=== PATIENT | male | born 1940 | race Caucasian/White ===

== ENCOUNTER 2023-02-18 21:05 | Emergency (ER) | payer MEDICARE, BC ==
[2023-02-18] MEDS ORDERED: Sodium Chloride 0.9% 10 ML Syringe FLUSH PRN (21:25)
[2023-02-18] MEDS ORDERED: Dextrose 5%-0.45% NaCl 1,000 ML IV SCH (21:45)
[2023-02-18] MEDS ORDERED: cefTRIAXone 2 GM in Sodium Chloride 0.9% 50 ML IV ONE (21:45)
[2023-02-18 21:52] LABS: BASOPHILS PERCENT AUTO 0.1 % (0.1-1.3); HEMATOCRIT 37.6 % (38.4-49.7); HEMOGLOBIN 13.3 g/dL (12.9-16.9); IMMATURE GRAN ABSOLUTE AUTO 0.04 K/uL (0.00-0.23); IMMATURE GRAN PERCENT AUTO 0.3 % (0.0-0.7); LYMPHOCYTES ABSOLUTE AUTO 0.53 K/uL (0.8-3.3); LYMPHOCYTES PERCENT AUTO 4.2 % (11.4-47.7); MEAN CORPUSCULAR HEMOGLOBIN 31.2 pg (31.6-35.5); MEAN CORPUSCULAR HGB CONC 35.4 g/dL (31.6-35.5); MEAN CORPUSCULAR VOLUME 88.3 fL (81.4-99.0); MONOCYTES ABSOLUTE AUTO 1.13 K/uL (0.20-0.90); MONOCYTES PERCENT AUTO 8.9 % (3.3-12.6); NEUTROPHILS ABSOLUTE AUTO 11.03 K/uL (1.0-7.6); NEUTROPHILS PERCENT AUTO 86.5 % (40.0-78.1); PLATELET COUNT,PLT 270 K/uL (130-375); RED BLOOD CELL COUNT 4.26 M/uL (4.14-5.76); WHITE BLOOD CELL COUNT,WBC 12.7 K/uL (3.2-11.0)
[2023-02-18 21:53] LABS: BASOPHILS ABSOLUTE AUTO 0.01 K/uL (0.00-0.10)
[2023-02-18 22:12] LABS: A/G RATIO 0.7 (1.2-2.2); ALANINE AMINOTRANSFERASE,ALT 24 U/L (12-78); ALBUMIN 2.8 g/dL (3.4-5.0); ALKALINE PHOSPHATASE 75 U/L (46-116); ASPARTATE AMNIOTRANSFERASE,AST 22 U/L (15-37); BILIRUBIN TOTAL 0.8 mg/dL (0.2-1.0); CARBON DIOXIDE,CO2 21 mmol/L (21-32); CHLORIDE,CL 97 mmol/L (100-108); ESTIMATED GFR 10 mL/min (>60); GLUCOSE RANDOM 118 mg/dL (74-106); POTASSIUM,K 5.1 mmol/L (3.6-5.2); PROTEIN TOTAL,TP 7.1 g/dL (6.4-8.2); SODIUM,NA 130 mmol/L (140-148)
[2023-02-18 22:13] LABS: ANION GAP 17.1 mmol/L (5.0-14.0)
[2023-02-18 22:15] LABS: BLOOD UREA NITROGEN,BUN 99 mg/dL (7-18); CREATININE 5.4 mg/dL (0.8-1.3)
[2023-02-18 22:17] LABS: LACTIC ACID 1.1 mmol/L (0.4-2.0)
== END 2023-02-18 22:40 ==
LOC: JP.ED 21:05
DX: A41.9 Sepsis, unspecified organism (principal); R65.20 Severe sepsis without septic shock; N17.9 Acute kidney failure, unspecified; N13.8 Other obstructive and reflux uropathy; N40.0 Benign prostatic hyperplasia without lower urinary tract symptoms; E87.5 Hyperkalemia; E87.1 Hypo-osmolality and hyponatremia; Z20.822 Contact with and (suspected) exposure to COVID-19
CPT/HCPCS: 36415; 80053; 83605; 84145; 85025; 87040; 93005; 96365; 99291; J0696; J1815; J3490; J7042; U0002

== ENCOUNTER 2023-03-28 15:41 | Emergency (ER) | payer MEDICARE, BC ==
[2023-03-28 16:48] LABS: BASOPHILS ABSOLUTE AUTO 0.03 K/uL (0.00-0.10); BASOPHILS PERCENT AUTO 0.5 % (0.1-1.3); EOSINOPHILS ABSOLUTE AUTO 0.14 K/uL (0.00-0.40); EOSINOPHILS PERCENT AUTO 2.5 % (0.0-5.4); HEMATOCRIT 37.4 % (38.4-49.7); HEMOGLOBIN 12.4 g/dL (12.9-16.9); IMMATURE GRAN ABSOLUTE AUTO 0.03 K/uL (0.00-0.23); IMMATURE GRAN PERCENT AUTO 0.5 % (0.0-0.7); LYMPHOCYTES ABSOLUTE AUTO 0.88 K/uL (0.8-3.3); MEAN CORPUSCULAR HEMOGLOBIN 31.4 pg (31.6-35.5); MEAN CORPUSCULAR HGB CONC 33.2 g/dL (31.6-35.5); MEAN CORPUSCULAR VOLUME 94.7 fL (81.4-99.0); MONOCYTES ABSOLUTE AUTO 0.49 K/uL (0.20-0.90); MONOCYTES PERCENT AUTO 8.9 % (3.3-12.6); NEUTROPHILS ABSOLUTE AUTO 3.94 K/uL (1.0-7.6); NEUTROPHILS PERCENT AUTO 71.6 % (40.0-78.1); PLATELET COUNT,PLT 208 K/uL (130-375); RED BLOOD CELL COUNT 3.95 M/uL (4.14-5.76); WHITE BLOOD CELL COUNT,WBC 5.5 K/uL (3.2-11.0)
[2023-03-28 17:04] LABS: ANION GAP 10.3 mmol/L (5.0-14.0); CALCIUM 8.4 mg/dL (8.5-10.1); CREATININE 0.9 mg/dL (0.8-1.3); EST CRCL DRUG DOSING (CG) 60.76 mL/min; POTASSIUM,K 4.3 mmol/L (3.6-5.2)
[2023-03-28] MEDS ORDERED: Bacitracin Oint 1 GM U/D Packet TOP ONE (18:13)
[2023-03-28 18:31] LABS: APPEARANCE,URINE CLOUDY (CLEAR); BILIRUBIN,URINE NEGATIVE (NEGATIVE); COLOR,URINE YELLOW (YELLOW); GLUCOSE,URINE NEGATIVE (NEGATIVE); KETONES,URINE NEGATIVE (NEGATIVE); LEUKOCYTE ESTERASE,URINE SMALL (NEGATIVE); NITRITE,URINE NEGATIVE (NEGATIVE); OCCULT BLOOD,URINE MODERATE (NEGATIVE); PH,URINE 6.5 (5.0-8.0); PROTEIN,URINE TRACE mg/dL (NEGATIVE); UROBILINOGEN,URINE 0.2 EU/dL (0.2-1.0)
[2023-03-28 18:36] LABS: AMORPHOUS SEDIMENT,URINE NUMEROUS; BACTERIA,URINE MODERATE; EPITHELIAL CELLS,URINE RARE; MUCUS,URINE NOT SEEN; WBC,URINE NOT SEEN (0-5)
== END 2023-03-28 19:26 | disposition home or self-care (01) ==
LOC: JP.ED 15:41
DX: S00.03XA Contusion of scalp, initial encounter (principal); I48.91 Unspecified atrial fibrillation; R00.1 Bradycardia, unspecified; N40.0 Benign prostatic hyperplasia without lower urinary tract symptoms; Z79.899 Other long term (current) drug therapy; Z87.891 Personal history of nicotine dependence; W18.30XA Fall on same level, unspecified, initial encounter
CPT/HCPCS: 36415; 70450; 70450-26; 80048; 81001; 85025; 93005; 99284

== ENCOUNTER 2024-11-17 23:48 | Emergency (ER) | payer MEDICARE, BC ==
[2024-11-18 00:22] LABS: BASOPHILS ABSOLUTE AUTO 0.04 K/uL (0.00-0.10); BASOPHILS PERCENT AUTO 0.4 % (0.1-1.3); EOSINOPHILS ABSOLUTE AUTO 0.17 K/uL (0.00-0.40); EOSINOPHILS PERCENT AUTO 1.8 % (0.0-5.4); HEMATOCRIT 43.6 % (38.4-49.7); HEMOGLOBIN 15.3 g/dL (12.9-16.9); IMMATURE GRAN ABSOLUTE AUTO 0.21 K/uL (0.00-0.23); IMMATURE GRAN PERCENT AUTO 2.2 % (0.0-0.7); LYMPHOCYTES PERCENT AUTO 4.1 % (11.4-47.7); MEAN CORPUSCULAR HEMOGLOBIN 32.5 pg (31.6-35.5); MEAN CORPUSCULAR HGB CONC 35.1 g/dL (31.6-35.5); MEAN CORPUSCULAR VOLUME 92.6 fL (81.4-99.0); MONOCYTES PERCENT AUTO 8.2 % (3.3-12.6); NEUTROPHILS ABSOLUTE AUTO 8.08 K/uL (1.0-7.6); NEUTROPHILS PERCENT AUTO 83.3 % (40.0-78.1); PLATELET COUNT,PLT 147 K/uL (130-375); RED BLOOD CELL COUNT 4.71 M/uL (4.14-5.76); WHITE BLOOD CELL COUNT,WBC 9.7 K/uL (3.2-11.0)
[2024-11-18 00:27] LABS: APPEARANCE,URINE CLEAR (CLEAR); BILIRUBIN,URINE NEGATIVE (NEGATIVE); COLOR,URINE YELLOW (YELLOW); GLUCOSE,URINE NEGATIVE (NEGATIVE); KETONES,URINE TRACE mg/dL (NEGATIVE); LEUKOCYTE ESTERASE,URINE NEGATIVE (NEGATIVE); NITRITE,URINE NEGATIVE (NEGATIVE); OCCULT BLOOD,URINE NEGATIVE (NEGATIVE); PH,URINE 6.5 (5.0-8.0); PROTEIN,URINE TRACE mg/dL (NEGATIVE)
[2024-11-18 00:35] LABS: AMORPHOUS SEDIMENT,URINE NOT SEEN; BACTERIA,URINE RARE; EPITHELIAL CELLS,URINE RARE; MUCUS,URINE RARE; WBC,URINE 0-5 (0-5)
[2024-11-18 00:40] LABS: A/G RATIO 1.1 (1.2-2.2); ALANINE AMINOTRANSFERASE,ALT 24 U/L (12-78); ALBUMIN 3.7 g/dL (3.4-5.0); ALKALINE PHOSPHATASE 64 U/L (46-116); ASPARTATE AMNIOTRANSFERASE,AST 21 U/L (15-37); BLOOD UREA NITROGEN,BUN 22 mg/dL (7-18); C-REACTIVE PROTEIN 5.78 mg/dL (<0.50); CALCIUM 8.7 mg/dL (8.5-10.1); CARBON DIOXIDE,CO2 27 mmol/L (21-32); CHLORIDE,CL 99 mmol/L (100-108); CREATININE 1.2 mg/dL (0.8-1.3); EST CRCL DRUG DOSING (CG) 45.01 mL/min; ESTIMATED GFR 59 mL/min (>60); GLUCOSE RANDOM 103 mg/dL (74-106); POTASSIUM,K 4.3 mmol/L (3.6-5.2); PROTEIN TOTAL,TP 7.1 g/dL (6.4-8.2); SODIUM,NA 136 mmol/L (140-148)
[2024-11-18 00:41] LABS: ANION GAP 14.3 mmol/L (5.0-14.0)
[2024-11-18 00:45] LABS: LACTIC ACID 1.2 mmol/L (0.4-2.0)
[2024-11-18] MEDS: Acetaminophen 500 MG Tab PO ONE (01:46)
[2024-11-18] MEDS: Iopamidol 612 MG/ML 100 ML Bottle IV SCH (02:18)
[2024-11-18] MEDS: Sodium Chloride 0.9% 10 ML Syringe FLUSH PRN (02:18)
[2024-11-18] MEDS: Sodium Chloride 0.9% 100 ML IV SCH (02:18)
== END 2024-11-18 04:30 | disposition home or self-care (01) ==
LOC: JP.ED 23:48
DX: B34.9 Viral infection, unspecified (principal); E78.00 Pure hypercholesterolemia, unspecified; I48.91 Unspecified atrial fibrillation; Z79.899 Other long term (current) drug therapy; Z79.01 Long term (current) use of anticoagulants; Z86.16 Personal history of COVID-19
CPT/HCPCS: 36415; 70450; 71260; 74177; 80053; 81001; 83605; 85025; 86140; 87428; 99285; A9270; Q9967

== ENCOUNTER 2024-11-23 00:54 | Emergency (ER) | payer MEDICARE, BC ==
[2024-11-23 01:26] LABS: APPEARANCE,URINE CLEAR (CLEAR); BILIRUBIN,URINE NEGATIVE (NEGATIVE); COLOR,URINE YELLOW (YELLOW); GLUCOSE,URINE NEGATIVE (NEGATIVE); KETONES,URINE NEGATIVE (NEGATIVE); LEUKOCYTE ESTERASE,URINE SMALL (NEGATIVE); NITRITE,URINE NEGATIVE (NEGATIVE); OCCULT BLOOD,URINE TRACE-LYSED (NEGATIVE); PH,URINE 5.5 (5.0-8.0); PROTEIN,URINE NEGATIVE (NEGATIVE)
[2024-11-23 01:32] LABS: BASOPHILS ABSOLUTE AUTO 0.03 K/uL (0.00-0.10); BASOPHILS PERCENT AUTO 0.5 % (0.1-1.3); EOSINOPHILS ABSOLUTE AUTO 0.24 K/uL (0.00-0.40); EOSINOPHILS PERCENT AUTO 4.4 % (0.0-5.4); HEMATOCRIT 41.1 % (38.4-49.7); IMMATURE GRAN PERCENT AUTO 0.4 % (0.0-0.7); LYMPHOCYTES ABSOLUTE AUTO 1.42 K/uL (0.8-3.3); LYMPHOCYTES PERCENT AUTO 25.8 % (11.4-47.7); MEAN CORPUSCULAR HEMOGLOBIN 31.9 pg (31.6-35.5); MEAN CORPUSCULAR HGB CONC 34.1 g/dL (31.6-35.5); MEAN CORPUSCULAR VOLUME 93.6 fL (81.4-99.0); MONOCYTES ABSOLUTE AUTO 0.52 K/uL (0.20-0.90); MONOCYTES PERCENT AUTO 9.4 % (3.3-12.6); NEUTROPHILS ABSOLUTE AUTO 3.28 K/uL (1.0-7.6); NEUTROPHILS PERCENT AUTO 59.5 % (40.0-78.1); PLATELET COUNT,PLT 191 K/uL (130-375); RED BLOOD CELL COUNT 4.39 M/uL (4.14-5.76); WHITE BLOOD CELL COUNT,WBC 5.5 K/uL (3.2-11.0)
[2024-11-23 01:34] LABS: IMMATURE GRAN ABSOLUTE AUTO 0.02 K/uL (0.00-0.23)
[2024-11-23 01:42] LABS: AMORPHOUS SEDIMENT,URINE NOT SEEN; BACTERIA,URINE FEW; EPITHELIAL CELLS,URINE FEW; MUCUS,URINE NOT SEEN; RBC,URINE 0-5 (0-5)
[2024-11-23 01:45] LABS: ANION GAP 5.5 mmol/L (5.0-14.0); CALCIUM 8.8 mg/dL (8.5-10.1); CREATININE 0.9 mg/dL (0.8-1.3); EST CRCL DRUG DOSING (CG) 65.86 mL/min; POTASSIUM,K 4.8 mmol/L (3.6-5.2)
[2024-11-23] MEDS: OLANZapine 5 MG Tab PO ONE (02:00)
== END 2024-11-23 11:21 | disposition home or self-care (01) ==
LOC: JP.ED 00:54
DX: F03.90 Unspecified dementia, unspecified severity, without behavioral disturbance, psychotic disturbance, mood disturbance, and anxiety (principal); Z79.01 Long term (current) use of anticoagulants; Z79.899 Other long term (current) drug therapy
CPT/HCPCS: 36415; 80048; 81001; 85025; 99282; 99285; A9270-GY

== ENCOUNTER 2025-05-12 14:56 | Emergency (ER) | payer MEDICARE, BC ==
[2025-05-12 15:32] LABS: BASOPHILS PERCENT AUTO 0.2 % (0.1-1.3); EOSINOPHILS ABSOLUTE AUTO 0.10 K/uL (0.00-0.40); EOSINOPHILS PERCENT AUTO 1.1 % (0.0-5.4); IMMATURE GRAN ABSOLUTE AUTO 0.03 K/uL (0.00-0.23); IMMATURE GRAN PERCENT AUTO 0.3 % (0.0-0.7); LYMPHOCYTES ABSOLUTE AUTO 0.26 K/uL (0.8-3.3); LYMPHOCYTES PERCENT AUTO 3.0 % (11.4-47.7); MONOCYTES ABSOLUTE AUTO 0.42 K/uL (0.20-0.90); MONOCYTES PERCENT AUTO 4.8 % (3.3-12.6); NEUTROPHILS ABSOLUTE AUTO 7.89 K/uL (1.0-7.6); NEUTROPHILS PERCENT AUTO 90.6 % (40.0-78.1); PLATELET COUNT,PLT 157 K/uL (130-375); RED BLOOD CELL COUNT 4.91 M/uL (4.14-5.76); WHITE BLOOD CELL COUNT,WBC 8.7 K/uL (3.2-11.0)
[2025-05-12 15:33] LABS: BASOPHILS ABSOLUTE AUTO 0.02 K/uL (0.00-0.10)
[2025-05-12 15:48] LABS: INR 2.4
[2025-05-12 15:51] LABS: A/G RATIO 0.9 (1.2-2.2); ALANINE AMINOTRANSFERASE,ALT 40 U/L (12-78); ASPARTATE AMNIOTRANSFERASE,AST 74 U/L (15-37); BILIRUBIN TOTAL 1.6 mg/dL (0.2-1.0); BLOOD UREA NITROGEN,BUN 18 mg/dL (7-18); CARBON DIOXIDE,CO2 31 mmol/L (21-32); CHLORIDE,CL 105 mmol/L (100-108); CREATININE 0.9 mg/dL (0.8-1.3); EST CRCL DRUG DOSING (CG) 59.25 mL/min; ESTIMATED GFR 83 mL/min (>60); GLUCOSE RANDOM 101 mg/dL (74-106); POTASSIUM,K 4.0 mmol/L (3.6-5.2); PROTEIN TOTAL,TP 6.3 g/dL (6.4-8.2); SODIUM,NA 139 mmol/L (140-148)
[2025-05-12 18:41] LABS: APPEARANCE,URINE SLIGHTLY CLOUDY (CLEAR); GLUCOSE,URINE NEGATIVE (NEGATIVE); OCCULT BLOOD,URINE SMALL (NEGATIVE)
[2025-05-12 18:48] LABS: SQUAMOUS EPITHELIAL CELLS,UR FEW /HPF; UROTHELIAL CELLS,URINE NOT SEEN /HPF
== END 2025-05-12 20:40 | disposition home or self-care (01) ==
LOC: JP.ED 14:56
DX: F03.90 Unspecified dementia, unspecified severity, without behavioral disturbance, psychotic disturbance, mood disturbance, and anxiety (principal); E78.00 Pure hypercholesterolemia, unspecified; I48.91 Unspecified atrial fibrillation; Z79.899 Other long term (current) drug therapy; Z79.01 Long term (current) use of anticoagulants; Z79.82 Long term (current) use of aspirin
CPT/HCPCS: 36415; 70450; 70450-26; 80053; 81001; 85025; 85610; 93005; 93010; 99284; 99285

== ENCOUNTER 2025-05-13 15:02 | Emergency (ER) | payer MEDICARE, BC ==
[2025-05-13 19:10] LABS: BASOPHILS PERCENT AUTO 0.1 % (0.1-1.3); EOSINOPHILS ABSOLUTE AUTO 0.16 K/uL (0.00-0.40); EOSINOPHILS PERCENT AUTO 2.0 % (0.0-5.4); IMMATURE GRAN ABSOLUTE AUTO 0.03 K/uL (0.00-0.23); IMMATURE GRAN PERCENT AUTO 0.4 % (0.0-0.7); LYMPHOCYTES ABSOLUTE AUTO 0.25 K/uL (0.8-3.3); LYMPHOCYTES PERCENT AUTO 3.1 % (11.4-47.7); MONOCYTES ABSOLUTE AUTO 0.29 K/uL (0.20-0.90); MONOCYTES PERCENT AUTO 3.6 % (3.3-12.6); NEUTROPHILS ABSOLUTE AUTO 7.30 K/uL (1.0-7.6); NEUTROPHILS PERCENT AUTO 90.8 % (40.0-78.1); PLATELET COUNT,PLT 170 K/uL (130-375); RED BLOOD CELL COUNT 4.72 M/uL (4.14-5.76); WHITE BLOOD CELL COUNT,WBC 8.0 K/uL (3.2-11.0)
[2025-05-13 19:12] LABS: BASOPHILS ABSOLUTE AUTO 0.01 K/uL (0.00-0.10)
[2025-05-13 19:27] LABS: INR 2.3
[2025-05-13 19:31] LABS: A/G RATIO 0.9 (1.2-2.2); ALANINE AMINOTRANSFERASE,ALT 54 U/L (12-78); ASPARTATE AMNIOTRANSFERASE,AST 92 U/L (15-37); BILIRUBIN TOTAL 1.0 mg/dL (0.2-1.0); BLOOD UREA NITROGEN,BUN 29 mg/dL (7-18); CARBON DIOXIDE,CO2 30 mmol/L (21-32); CHLORIDE,CL 105 mmol/L (100-108); CREATININE 1.3 mg/dL (0.8-1.3); EST CRCL DRUG DOSING (CG) 41.02 mL/min; ESTIMATED GFR 54 mL/min (>60); GLUCOSE RANDOM 198 mg/dL (74-106); POTASSIUM,K 3.7 mmol/L (3.6-5.2); PROTEIN TOTAL,TP 6.7 g/dL (6.4-8.2); SODIUM,NA 140 mmol/L (140-148)
[2025-05-14 09:37] LABS: APPEARANCE,URINE CLEAR (CLEAR); GLUCOSE,URINE NEGATIVE (NEGATIVE); OCCULT BLOOD,URINE TRACE-INTACT (NEGATIVE)
[2025-05-14 09:43] LABS: SQUAMOUS EPITHELIAL CELLS,UR NOT SEEN /HPF; UROTHELIAL CELLS,URINE NOT SEEN /HPF
== END 2025-05-14 10:16 ==
LOC: JP.ED 15:02
DX: M62.82 Rhabdomyolysis (principal); I48.91 Unspecified atrial fibrillation; E78.00 Pure hypercholesterolemia, unspecified; Z79.01 Long term (current) use of anticoagulants; Z79.82 Long term (current) use of aspirin; Z79.899 Other long term (current) drug therapy
CPT/HCPCS: 36415; 51702; 80053; 81001; 82550; 85025; 85610; 96361; 96374; 99285; J1630; J7030